=== PATIENT | male | born 1950 | race Caucasian/White ===

== ENCOUNTER 2017-08-26 06:15 | Day surgery (SDC) | payer OTHER ==
[~2017-08-26] VITALS: Ht 180.3 cm; Wt 125.7 kg
[~2017-08-26 06:15] MED LIST: ACETAMINOPHEN 325 MG TAB PO PRN; AMLO10TA2 PO; ATEN25TA PO; FLOM5CAP PO; LISI-538 PO; METF500T13 PO; METH5TA PO; PRAV20TA2 PO; STOO100C PO; VITA1CAP40 PO
[2017-08-26] MEDS ORDERED: SLF 3 ML SYR IV PRN (06:30)
[2017-08-26] MEDS ORDERED: POVIDONE-IODINE 5% OPHTH PREP SOL 30ML As Ordered ONE ×2 (06:47→07:48)
[2017-08-26] MEDS ORDERED: LIDOCAINE 1% SDV 5 ML VIAL As Ordered ONE ×2 (06:47→07:49)
[2017-08-26] MEDS ORDERED: CEFUROXIME 1MG/0.1ML INTRACAMERAL INJ As Ordered ONE ×2 (06:47→07:49)
[2017-08-26] MEDS ORDERED: ACETYLCHOLINE OPHTH SOLN 1% 2ML (MIOCHOL-E) As Ordered ONE ×2 (06:47→07:48)
[2017-08-26] MEDS ORDERED: HEALON DUET (HEALON 10MG/ML 0.55ML & HEALON ENDOCOAT 30MG/ML 0.85ML) As Ordered ONE ×2 (06:47→07:49)
[2017-08-26] MEDS ORDERED: BALANCED SALT IRRIGATION SOL 500ML GLASS BOTTLE (FOR OR EYE COMPOUND) As Ordered ONE (06:48)
[2017-08-26] MEDS ORDERED: OFLOXACIN 0.3 % (OCUFLOX) OPTH SOL 5ML OD ONE (07:00)
[2017-08-26] MEDS ORDERED: PHENYLEPHRINE HCL 10 % OPHTH. SOL 5ML OD PRN (07:00)
[2017-08-26] MEDS ORDERED: CYCLOPENTOLATE 2% OPHTH SOLN 2ML BTL OD ONE (07:00)
[2017-08-26] MEDS ORDERED: LIDOCAINE 3.5 % 1ML OPHTH TOPICAL GEL OU ONE (07:00)
[2017-08-26] MEDS ORDERED: TROPICAMIDE 1% OPHTH SOLN 2ML OD ONE (07:00)
[2017-08-26] MEDS ORDERED: PHENYLEPHRINE 2.5% OPHTH SOL 2ML OD ONE (07:00)
[2017-08-26] MEDS ORDERED: PROPARACAINE 0.5% OPHTH SOL 15ML OD PRN (07:01)
[2017-08-26] MEDS ORDERED: MIDAZOLAM INJ 2 MG/2 ML VIAL (J2250) As Ordered ONE (08:00)
[2017-08-26] MEDS ORDERED: KETOROLAC 0.5% OPHTH SOLN OD ONE (08:45)
[2017-08-26] MEDS ORDERED: TRIMETHOBENZAMIDE 300 MG CAP PO PRN (08:45)
[2017-08-26] MEDS ORDERED: AcetaZOLAMIDE 500 MG ER CAP PO ONE (08:45)
[2017-08-26 08:55] VITALS: BP 153/84
[2017-08-26] MEDS ORDERED: SLF 3 ML SYR IV SCH (14:00)
--- NOTE | 2017-08-26 16:57 | RO ---
DATE OF PROCEDURE: 08/26/2017 PREPROCEDURE DIAGNOSIS: Age related nuclear cataract right eye. POSTPROCEDURE DIAGNOSIS: Age related nuclear cataract right eye. PROCEDURE: Phacoemulsification and posterior chamber intraocular lens implantation. The lens used was AU00T0 19.5 diopter. SURGEON: Keila Cheung MD [employer] YE[employer] SUPERVISOR: ANESTHESIA: Topical with sedation. DESCRIPTION OF PROCEDURE: The patient was prepped and draped in the usual fashion. A lid speculum was placed between the lids. The eye was fixated. A stab incision was made to the anterior chamber, and 1% non-preserved lidocaine was instilled. Then, viscoelastic was instilled. The eye was re-fixated. A 2.75 mm sapphire keratome was used to make a clear corneal temporal limbal incision. Capsulorrhexis was begun with a 30-gauge bent needle and then carried out in a circular fashion with capsulorrhexis forceps. The lens was hydrodissected, and then the phacoemulsification unit was used to make a groove in the nucleus in two meridians. The nucleus was then cracked into four quadrants. Each quadrant was removed with the phacoemulsification unit. Any remaining cortex was removed with the irrigation and aspiration (I and A) unit. Capsular bag was refilled with viscoelastic. A posterior chamber intraocular lens was placed in the capsular bag without difficulty. Any remaining viscoelastic was removed with the I and A unit. The wound was hydrated, and Miochol and cefuroxime were instilled into the anterior chamber. The patient tolerated the procedure well and went to the recovery room in stable condition.
== END 2017-08-26 08:58 | disposition home or self-care (01) ==
LOC: M SDC 06:15
PROVIDERS: ATTEND Ophthalmology
DX: H25.11 Age-related nuclear cataract, right eye (principal); I10 Essential (primary) hypertension; E78.00 Pure hypercholesterolemia, unspecified; E11.9 Type 2 diabetes mellitus without complications; B18.2 Chronic viral hepatitis C; M17.0 Bilateral primary osteoarthritis of knee; F41.9 Anxiety disorder, unspecified; F32.9 Major depressive disorder, single episode, unspecified; F43.10 Post-traumatic stress disorder, unspecified; N40.0 Benign prostatic hyperplasia without lower urinary tract symptoms; D61.818 Other pancytopenia; M54.2 Cervicalgia; I73.9 Peripheral vascular disease, unspecified; R80.9 Proteinuria, unspecified; M54.5 Low back pain; G89.29 Other chronic pain; Z79.899 Other long term (current) drug therapy; Z79.84 Long term (current) use of oral hypoglycemic drugs; Z79.82 Long term (current) use of aspirin; Z96.653 Presence of artificial knee joint, bilateral; Z87.891 Personal history of nicotine dependence

== ENCOUNTER 2017-10-14 09:37 | Day surgery (SDC) | payer OTHER ==
[~2017-10-14 09:37] MED LIST changes: +ACETAMINOPHEN 325 MG TAB PO; -ACETAMINOPHEN 325 MG TAB PO PRN; -AMLO10TA2 PO; -ATEN25TA PO; -FLOM5CAP PO; -LISI-538 PO; -METF500T13 PO; -METH5TA PO; -PRAV20TA2 PO; +PROPARACAINE 0.5% OPHTH SOL 15ML OS; -STOO100C PO; -VITA1CAP40 PO
[2017-10-14] MEDS: CYCLOPENTOLATE 2% OPHTH SOLN 2ML BTL OS (10:38)
[2017-10-14] MEDS: TROPICAMIDE 1% OPHTH SOLN 2ML OS (10:38)
[2017-10-14] MEDS: PHENYLEPHRINE 2.5% OPHTH SOL 2ML OS (10:39)
[2017-10-14] MEDS: OFLOXACIN 0.3 % (OCUFLOX) OPTH SOL 5ML OS (10:39)
[2017-10-14] MEDS: LIDOCAINE 3.5 % 1ML OPHTH TOPICAL GEL OU (10:39)
[2017-10-14] MEDS: PHENYLEPHRINE HCL 10 % OPHTH. SOL 5ML OS (10:57)
[2017-10-14 10:58] LABS: BEDSIDE GLUCOSE 136 MG/DL (80-115)
[2017-10-14] MEDS ORDERED: fentaNYL 100 MCG/2 ML INJECTION (J3010) As Ordered (11:50)
[2017-10-14] MEDS ORDERED: MIDAZOLAM INJ 2 MG/2 ML VIAL (J2250) As Ordered (11:50)
[2017-10-14] MEDS: POVIDONE-IODINE 5% OPHTH PREP SOL 30ML As Ordered (11:52)
[2017-10-14] MEDS: LIDOCAINE 1% SDV 5 ML VIAL As Ordered (11:52)
[2017-10-14] MEDS: HEALON DUET (HEALON 10MG/ML 0.55ML & HEALON ENDOCOAT 30MG/ML 0.85ML) As Ordered (12:01)
[2017-10-14] MEDS: BALANCED SALT IRRIGATION SOLUTION 500ML BAG (FOR OR EYE MACHINE) As Ordered (12:01)
[2017-10-14] MEDS: ACETYLCHOLINE OPHTH SOLN 1% 2ML (MIOCHOL-E) As Ordered (12:01)
[2017-10-14] MEDS: CEFUROXIME 1MG/0.1ML INTRACAMERAL INJ As Ordered (12:01)
[2017-10-14] MEDS: AcetaZOLAMIDE 500 MG ER CAP PO (12:40)
[2017-10-14] MEDS: KETOROLAC 0.5% OPHTH SOLN OS (12:40)
[2017-10-14] MEDS ORDERED: TRIMETHOBENZAMIDE 300 MG CAP PO (12:45)
[2017-10-14] MEDS ORDERED: ONDANSETRON 4MG/2ML VIAL (J2405) IV (12:45)
== END 2017-10-14 12:55 | disposition home or self-care (01) ==
LOC: M SDC 09:37
DX: H25.12 Age-related nuclear cataract, left eye (principal); I10 Essential (primary) hypertension; E11.9 Type 2 diabetes mellitus without complications; Z79.899 Other long term (current) drug therapy; F43.10 Post-traumatic stress disorder, unspecified; F41.9 Anxiety disorder, unspecified; F32.9 Major depressive disorder, single episode, unspecified
CPT/HCPCS: 66984

== ENCOUNTER 2019-08-30 12:43 | Emergency (ER) | payer OTHER ==
[~2019-08-30] VITALS: Ht 180.3 cm; Wt 127.8 kg
[~2019-08-30 12:43] MED LIST changes: -ACETAMINOPHEN 325 MG TAB PO; +AMLO10TA5 PO; +ATEN25TA PO; +FLOM0.4C39 PO; +LISI-538 PO; +METF500T13 PO; +METH5TA PO; +MM S100C PO; +PRAV20TA2 PO; -PROPARACAINE 0.5% OPHTH SOL 15ML OS; +VALI5TAB PO; +VITA50005 PO
[2019-08-30] MEDS ORDERED: CYMB1CAP5 PO (13:07)
[2019-08-30] MEDS ORDERED: OXYC-517 PO (13:07)
[2019-08-30 13:17] LABS: BASO % 0.4 % (0.0-1.0); EOS # 0.2 10^3/uL (0.0-0.5); EOS % 2.6 % (0.0-3.0); HEMATOCRIT 48.1 % (42.0-52.0); HEMOGLOBIN 16.2 g/dl (13.5-17.5); LYMPH # 1.6 10^3/uL (1.5-5.0); LYMPH % 21.4 % (24.0-44.0); MEAN CORPUSCULAR HEMOGLOBIN 29.5 pg (27.0-33.0); MEAN CORPUSCULAR HGB CONC 33.7 g/dl (32.0-36.5); MEAN CORPUSCULAR VOLUME 87.5 fl (80.0-96.0); MONO # 0.6 10^3/uL (0.0-0.8); MONO % 8.3 % (0.0-5.0); NEUTROPHILS # 4.9 10^3/uL (1.5-8.5); PLATELET COUNT, AUTOMATED 123 10^3/uL (150-450); WHITE BLOOD COUNT 7.3 10^3/uL (4.0-10.0)
--- NOTE | 2019-08-30 13:19 | REP ---
Clinical: Right-sided weakness. Technique: Axial noncontrast images from the skull base to the vertex with coronal re-formations. Findings: Age-related atrophy and microvascular ischemic changes are appreciated. The ventricles and sulci are symmetric. Pope-white differentiation is maintained. There is no evidence for acute intracranial hemorrhage, mass/mass effect, pathology or infarction. No extra-axial fluid collection. Calvarium is intact. Paranasal sinuses and mastoid air cells are clear. Impression: Age related atrophy and microvascular ischemic changes. No acute intracranial hemorrhage, infarction, or mass/mass effect. Electronically Signed by Vladimir Car MD 08/30/2019 01:10 P
[2019-08-30 13:30] LABS: INR 1.1
[2019-08-30 13:31] LABS: PARTIAL THROMBOPLASTIN TIME 29.7 SECONDS (25.0-38.4)
--- NOTE | 2019-08-30 13:34 | REP ---
Clinical: Acute cerebrovascular accident . Comparison: None . Findings: Mild cardiomegaly and tortuous thoracic aorta is suggested. Lung cates demonstrate chronic-appearing changes. No focal consolidation, effusion, or pneumothorax. Skeletal structures are intact. Impression: Chronic-appearing changes. No focal consolidation. Electronically Signed by Vladimir Car MD 08/30/2019 01:26 P
[2019-08-30 13:45] LABS: BLOOD UREA NITROGEN 18 MG/DL (7-18); CARBON DIOXIDE LEVEL 25 MEQ/L (21-32); CHLORIDE LEVEL 100 MEQ/L (98-107); CK-MB VALUE MASS 1.9 NG/ML (<3.6); CPK CREATINE PHOSPHOKINASE 72 U/L (39-308); CREATININE FOR GFR 1.09 MG/DL (0.70-1.30); GLOMERULAR FILTRATION RATE > 60.0 (>49); GLUCOSE, FASTING 122 MG/DL (70-100); MB/CK RELATIVE INDEX 2.64 (< OR =4); POTASSIUM SERUM 4.3 MEQ/L (3.5-5.1); SODIUM LEVEL 133 MEQ/L (136-145); TROPONIN I < 0.02 NG/ML (< 0.10)
[2019-08-30] MEDS ORDERED: PRED20TA PO (14:22)
[2019-08-30] MEDS ORDERED: VALA1TAB64 PO (14:22)
[2019-08-30] MEDS ORDERED: [UNRECOGNIZED DRUG - OTHER] (14:22)
[2019-08-30] MEDS ORDERED: predniSONE 20 MG TAB PO ONE (14:30)
[2019-08-30] MEDS ORDERED: ACYCLOVIR 200 MG CAPSULE PO ONE (14:30)
[2019-08-30 14:32] VITALS: BP 152/75
[2019-08-30] MEDS ORDERED: [UNRECOGNIZED DRUG - OTHER] OD (14:42)
--- NOTE | 2019-08-31 07:51 | ECGEPIP ---
[facility] - ED Test Date: 2019-08-30 Pat Name: VAISHNAVI DUMONT Department: Room: - Gender: Male [employer] Tnt: SUNDAY : 1950 Requested By: TEVIN Mccartney Order Number: [id number] Reading MD: Tevin Daigle Measurements Intervals [place] Rate: 61 P: 39 [place]: 225 QRS: -25 QRSD: 89 T: 46 QT: 415 QTc: 419 Interpretive Statements SINUS RHYTHM WITH FIRST DEGREE AV BLOCK LOW QRS VOLTAGE IN PRECORDIAL LEADS Nonspecific T wave abnormality Comparison tracing not on file Electronically Signed on 08-31-2019 7:51:05 EST by Tevin Daigle
== END 2019-08-30 14:48 | disposition home or self-care (01) ==
LOC: M ED 12:43
DX: G51.0 Bell's palsy (principal); I10 Essential (primary) hypertension; I44.0 Atrioventricular block, first degree; E78.5 Hyperlipidemia, unspecified; Z79.84 Long term (current) use of oral hypoglycemic drugs; Z79.899 Other long term (current) drug therapy; Z87.891 Personal history of nicotine dependence; Z82.3 Family history of stroke; Z88.5 Allergy status to narcotic agent

== ENCOUNTER → 2022-10-29 | Outpatient (CLI) | payer OTHER ==
[~2022-10-29] MED LIST changes: -AMLO10TA5 PO; +AMLO1TAB25 PO; +CYMB1CAP5 PO; -LISI-538 PO; +LISI20TA33 PO; +OXYC-517 PO; +PRED20TA PO; +VALA1TAB5 PO; +[UNRECOGNIZED DRUG - OTHER]; +[UNRECOGNIZED DRUG - OTHER] OD
== END ==
LOC: M SOG 08:02
PROVIDERS: ATTEND Orthopaedic Surgery
DX: M25.562 Pain in left knee (principal); M25.561 Pain in right knee